=== PATIENT | male | born 1985 | race Caucasian/White ===

== ENCOUNTER 2019-05-02 08:02 | Inpatient (IN) | payer BC ==
[2019-05-02] MEDS ORDERED: Sodium Chloride 0.9% 1,000 ML IV ONE (08:13)
[2019-05-02] MEDS ORDERED: Ketorolac 30 MG/ML SDV IVPUSH ONE (08:13)
--- NOTE | 2019-05-02 08:15 | EDM.PDOC ---
ED HPI GENERAL MEDICAL PROBLEM - General Chief Complaint: General Stated Complaint: SHORTNESS OF BREATH, FEVER Time Seen by Provider: 05/02/19 08:13 - History of Present Illness INITIAL COMMENTS - FREE TEXT/NARRATIVE: HISTORY AND PHYSICAL: History of present illness: Patient 33-year-old white male presents with concern of body aches cough and fever or last 5 days patient is a smoker he denies nausea vomiting he states he' s had increasing weakness and body aches or last 24 hours. He's also complaining of shortness of breath. Review of systems: As per history of present illness and below otherwise all systems reviewed and negative. Past medical history: As per history of present illness and as reviewed below otherwise noncontributory. Surgical history: As per history of present illness and as reviewed below otherwise noncontributory. Social history: No reported history of drug or alcohol abuse. Family history: As per history of present illness and as reviewed below otherwise noncontributory. Physical exam: HEENT: Atraumatic, normocephalic, pupils reactive, negative for conjunctival pallor or scleral icterus, mucous membranes moist, throat clear, neck supple, nontender, trachea midline. Lungs: Coarse bilaterally, breath sounds equal bilaterally, chest nontender. Heart: S1S2, regular, negative for clicks, rubs, or JVD. Abdomen: Soft, nondistended, nontender. Negative for masses or hepatosplenomegaly. Negative for costovertebral tenderness. Pelvis: Stable nontender. Genitourinary: Deferred. Rectal: Deferred. Extremities: Atraumatic, negative for cords or calf pain. Neurovascular unremarkable. Neuro: Awake, alert, oriented. Cranial nerves II through XII unremarkable. Cerebellum unremarkable. Motor and sensory unremarkable throughout. Exam nonfocal. Diagnostics: CBC CMP chest x-ray blood cultures 2 lactic acid ABG Therapeutics: Saline 1 L bolus and Toradol 30 mg IV albuterol ipratropium nebulizer Impression: #1 dyspnea #2 history of fever #3 myalgia #4 rule out pneumonia Definitive disposition and diagnosis as appropriate pending reevaluation and review of above. - Related Data Allergies Allergy/AdvReac Type Severity Reaction Status Date / Time No Known Allergies Allergy Verified 05/02/19 08:18 Home Meds: Home Meds . [No Known Home Meds] 05/02/19 [History] ED ROS GENERAL - Review of Systems Review Of Systems: ROS reveals no pertinent complaints other than HPI. ED EXAM, GENERAL - Physical Exam Exam: See Below (The dictation) Course - Vital Signs Last Recorded V/S: Last Vital Signs Temp 37.2 C 05/02/19 08:15 Pulse 101 H 05/02/19 08:15 Resp 24 H 05/02/19 08:15 BP 118/80 05/02/19 08:15 Pulse Ox 97 05/02/19 08:15 - Orders/Labs/Meds Orders: Active Orders 24 hr Category Date Time Status RT Aerosol Therapy [RC] ASDIRECTED Care 05/02/19 08:16 Active Chest 1V Frontal [CR] Stat Exams 05/02/19 08:13 Taken CULTURE BLOOD [BC] Stat Lab 05/02/19 08:27 Received CULTURE BLOOD [BC] Stat Lab 05/02/19 08:57 Received Blood Culture x2 Reflex Set [OM.PC] Stat Oth 05/02/19 08:13 Ordered Labs: Laboratory Tests 05/02/19 05/02/19 05/02/19 Range/Units 08:27 08:27 08:27 WBC 6.84 (4.0-11.0) K/uL RBC 4.77 (4.50-5.90) M/uL Hgb 14.2 (13.0-17.0) g/dL Hct 40.8 (38.0-50.0) % MCV 85.5 (80.0-98.0) fL MCH 29.8 (27.0-32.0) pg MCHC 34.8 (31.0-37.0) g/dL RDW Std Deviation 41.3 (28.0-62.0) fl RDW Coeff of Supriya 13 (11.0-15.0) % Plt Count 221 (150-400) K/uL MPV 10.30 (7.40-12.00) fL Neut % (Auto) 79.8 (48.0-80.0) % Lymph % (Auto) 10.2 L (16.0-40.0) % [place] % (Auto) 9.6 (0.0-15.0) % Eos % (Auto) 0.3 (0.0-7.0) % Baso % (Auto) 0.1 (0.0-1.5) % Neut # (Auto) 5.5 (1.4-5.7) K/uL Lymph # (Auto) 0.7 (0.6-2.4) K/uL [place] # (Auto) 0.7 (0.0-0.8) K/uL Eos # (Auto) 0.0 (0.0-0.7) K/uL Baso # (Auto) 0.0 (0.0-0.1) K/uL Nucleated RBC % 0.0 /100WBC Nucleated RBCs # 0 K/uL ABG pH (7.35-7.45) ABG pCO2 (35-45) mmHG ABG pO2 (75-100) mmHG ABG HCO3 (22-26) mEq/L ABG Total CO2 ABG Base Excess (-2.0-2.0) Lactate 1.3 (0.20-2.00) mmol/L Sodium 135 L (136-148) mmol/L Potassium 3.8 (3.5-5.1) mmol/L Chloride 101 (98-107) mmol/L Carbon Dioxide 21.1 (21.0-32.0) mmol/L BUN 14 (7.0-18.0) mg/dL Creatinine 1.2 (0.8-1.3) mg/dL Est Cr Clr Drug Dosing 95.20 mL/min Estimated GFR (MDRD) > 60.0 ml/min Glucose 102 (74-106) mg/dL Calcium 9.1 (8.5-10.1) mg/dL Total Bilirubin 0.6 (0.2-1.0) mg/dL AST 22 (15-37) IU/L ALT 35 (14-63) IU/L Alkaline Phosphatase 68 (46-116) U/L Total Protein 7.2 (6.4-8.2) g/dL Albumin 3.0 L (3.4-5.0) g/dL Globulin 4.2 H (2.6-4.0) g/dL Albumin/Globulin Ratio 0.7 L (0.9-1.6) 05/02/19 Range/Units 08:43 WBC (4.0-11.0) K/uL RBC (4.50-5.90) M/uL Hgb (13.0-17.0) g/dL Hct (38.0-50.0) % MCV (80.0-98.0) fL MCH (27.0-32.0) pg MCHC (31.0-37.0) g/dL RDW Std Deviation (28.0-62.0) fl RDW Coeff of Supriya (11.0-15.0) % Plt Count (150-400) K/uL MPV (7.40-12.00) fL Neut % (Auto) (48.0-80.0) % Lymph % (Auto) (16.0-40.0) % [place] % (Auto) (0.0-15.0) % Eos % (Auto) (0.0-7.0) % Baso % (Auto) (0.0-1.5) % Neut # (Auto) (1.4-5.7) K/uL Lymph # (Auto) (0.6-2.4) K/uL [place] # (Auto) (0.0-0.8) K/uL Eos # (Auto) (0.0-0.7) K/uL Baso # (Auto) (0.0-0.1) K/uL Nucleated RBC % /100WBC Nucleated RBCs # K/uL ABG pH 7.647 H (7.35-7.45) ABG pCO2 16 L (35-45) mmHG ABG pO2 66 L (75-100) mmHG ABG HCO3 18 L (22-26) mEq/L ABG Total CO2 15.2 ABG Base Excess -0.4 (-2.0-2.0) Lactate (0.20-2.00) mmol/L Sodium (136-148) mmol/L Potassium (3.5-5.1) mmol/L Chloride (98-107) mmol/L Carbon Dioxide (21.0-32.0) mmol/L BUN (7.0-18.0) mg/dL Creatinine (0.8-1.3) mg/dL Est Cr Clr Drug Dosing mL/min Estimated GFR (MDRD) ml/min Glucose (74-106) mg/dL Calcium (8.5-10.1) mg/dL Total Bilirubin (0.2-1.0) mg/dL AST (15-37) IU/L ALT (14-63) IU/L Alkaline Phosphatase (46-116) U/L Total Protein (6.4-8.2) g/dL Albumin (3.4-5.0) g/dL Globulin (2.6-4.0) g/dL Albumin/Globulin Ratio (0.9-1.6) Meds: Medications Discontinued Medications Generic Name Dose Route Start Last Admin Trade Name Holly PRN Reason Stop Dose Admin Albuterol/Ipratropium 3 ml 05/02/19 08:16 05/02/19 09:00 Duoneb 3.0-0.5 Mg/3 Ml NEB 05/02/19 08:17 3 ml ONETIME ONE Administration Sodium Chloride 1,000 mls @ 999 mls/hr 05/02/19 08:13 05/02/19 08:30 Normal Saline IV 05/02/19 09:13 999 mls/hr STAT ONE Administration Ketorolac Tromethamine 30 mg 05/02/19 08:13 05/02/19 08:30 Toradol IVPUSH 05/02/19 08:14 30 mg ONETIME ONE Administration Departure - Departure Time of Disposition: 10:09 Disposition: Admitted As Inpatient 65 Condition: Good Clinical Impression: Pneumonia - Discharge Information Referrals: PCP,Unknown [Primary Care Provider] - Forms: ED Department Discharge - My Orders Last 24 Hours: My Active Orders 05/02/19 08:13 Chest 1V Frontal [CR] Stat Blood Culture x2 Reflex Set [OM.PC] Stat 05/02/19 08:16 RT Aerosol Therapy [RC] ASDIRECTED 05/02/19 08:27 CULTURE BLOOD [BC] Stat 05/02/19 08:57 CULTURE BLOOD [BC] Stat - Assessment/Plan Last 24 Hours: My Active Orders 05/02/19 08:13 Chest 1V Frontal [CR] Stat Blood Culture x2 Reflex Set [OM.PC] Stat 05/02/19 08:16 RT Aerosol Therapy [RC] ASDIRECTED 05/02/19 08:27 CULTURE BLOOD [BC] Stat 05/02/19 08:57 CULTURE BLOOD [BC] Stat
[2019-05-02] MEDS ORDERED: Albuterol/Ipratropium 3.0-0.5 MG/3 ML Neb Soln NEB ONE (08:16)
[2019-05-02 09:14] LABS: BLOOD UREA NITROGEN,BUN 14 mg/dL (7.0-18.0); CARBON DIOXIDE,CO2 21.1 mmol/L (21.0-32.0); CHLORIDE,CL 101 mmol/L (98-107); GLUCOSE RANDOM 102 mg/dL (74-106); POTASSIUM,K 3.8 mmol/L (3.5-5.1); SODIUM,NA 135 mmol/L (136-148)
[2019-05-02] MEDS ORDERED: cefTRIAXone 1 GM in Premix Bag 1 BAG IV ONE (10:10)
[2019-05-02] MEDS ORDERED: Azithromycin 500 MG Vial IV ONE (10:10)
--- NOTE | 2019-05-02 10:10 | CR ---
INDICATION : SOB and congestion. TECHNIQUE: Upright portable AP image of the chest. COMPARISON: None. FINDINGS: Right middle lobe pneumonia with some consolidation along the lateral minor fissure. Patchy/nodular opacity in the lower left lung suggesting pneumonia as well. No pleural effusion. Heart size and pulmonary vasculature within normal limits. No significant bony abnormality. IMPRESSION: Right middle lobe pneumonia suspected lower left lung pneumonia. Dictated by Merritt Underwood MD @ May 02 2019 10:06AM Signed by Dr. Merritt Underwood @ May 02 2019 10:08AM
[2019-05-02] MEDS ORDERED: Azithromycin 500 MG in Sodium Chloride 0.9% 250 ML IV ONE (10:15)
--- NOTE | 2019-05-02 10:55 | PCM.HP.2 ---
<Imelda Lr - Last Filed: 05/02/19 10:50> H&P History of Present Illness - General Date of Service: 05/02/19 Admit Problem/Dx: Admission Diagnosis/Problem Admission Diagnosis/Problem Pneumonia - History of Present Illness Initial Comments - Free Text/Narative: The patient is a 33 year old male who presented to the ER for productive cough, shortness of breath, body aches, fever/chills for the past 5-6 days. reports the shortness of breath got significantly worse which is what brought him to the ER todya. He has been using Tylenol and NyQuil at home without relief. denies history of lung disease or pneumonia. reports he smokes cigarettes 1pk/ day and vapes. Hasn't smoked in the last week due to illness. Reports otherwise healthy, no chronic conditions, no medications. In the ER, ABG showed respiratory alkalosis, no white count, no elevated lactate , CMP had no significant findings. He was requiring oxygen in the ER. CXR showed right middle lobe pneumonia nd possible left lower lobe pneumonia. In the ER he received a DuoNeb treatment that improved his SOB. He received a dose of Azithromycin and Rocephin. PCP- none headache, generalized Pain Score (Numeric/FACES): 8 - Related Data Allergies/Adverse Reactions: Allergies Allergy/AdvReac Type Severity Reaction Status Date / Time No Known Allergies Allergy Verified 05/02/19 08:18 Home Medications: Home Meds . [No Known Home Meds] 05/02/19 [History] Past Medical History - Past Health History Medical/Surgical History: Denies Medical/Surgical History - Infectious Disease History Infectious Disease History: Reports: MRSA - Past Surgical History GI Surgical History: Reports: Hernia, Inguinal Social & Family History - Family History Family Medical History: Noncontributory - Tobacco Use Smoking Status *Q: Current Every Day Smoker Tobacco Use Within Last Twelve Months: Cigarettes, Other (See Below) (vapes) Years of Tobacco use: 15 Packs/Tins Daily: 0.1 - Alcohol Use Alcohol Use History: No - Recreational Drug Use Recreational Drug Use: No H&P Review of Systems - Review of Systems: Review Of Systems: See Below General: Reports: Fever, Chills HEENT: Reports: No Symptoms Pulmonary: Reports: Shortness of Breath, Wheezing, Cough Cardiovascular: Reports: No Symptoms Gastrointestinal: Reports: No Symptoms Genitourinary: Reports: No Symptoms Musculoskeletal: Reports: No Symptoms Skin: Reports: No Symptoms Psychiatric: Reports: No Symptoms Neurological: Reports: No Symptoms Hematologic/Lymphatic: Reports: No Symptoms Immunologic: Reports: No Symptoms Exam - Exam Exam: See Below - Vital Signs Vital Signs: Last Vital Signs Temp 99 F 05/02/19 08:15 Pulse 101 H 05/02/19 08:15 Resp 24 H 05/02/19 08:15 BP 118/80 05/02/19 08:15 Pulse Ox 97 05/02/19 08:15 Weight: 106.594 kg - Exam Quality Assessment: Supplemental Oxygen General: Alert, Oriented, Cooperative HEENT: Conjunctiva Clear, EOMI, Mucosa Moist & [place], Posterior Pharynx Clear, Pupils Equal, Pupils Reactive Neck: Supple, Trachea Midline Lungs: Normal Respiratory Effort, Crackles (right) Cardiovascular: Regular Rate, Regular Rhythm GI/Abdominal Exam: Normal Bowel Sounds, Soft, Non-Tender, No Distention Extremities: No Pedal Edema Skin: Warm, Dry, Intact Neuro Extensive - Mental Status: Alert, Oriented x3 Psychiatric: Alert, Normal Affect, Normal Mood - Patient Data Lab Results Last 24 hrs: Laboratory Results - last 24 hr 05/02/19 05/02/19 05/02/19 Range/Units 08:27 08:27 08:27 WBC 6.84 (4.0-11.0) K/uL RBC 4.77 (4.50-5.90) M/uL Hgb 14.2 (13.0-17.0) g/dL Hct 40.8 (38.0-50.0) % MCV 85.5 (80.0-98.0) fL MCH 29.8 (27.0-32.0) pg MCHC 34.8 (31.0-37.0) g/dL RDW Std Deviation 41.3 (28.0-62.0) fl RDW Coeff of Supriya 13 (11.0-15.0) % Plt Count 221 (150-400) K/uL MPV 10.30 (7.40-12.00) fL Neut % (Auto) 79.8 (48.0-80.0) % Lymph % (Auto) 10.2 L (16.0-40.0) % [place] % (Auto) 9.6 (0.0-15.0) % Eos % (Auto) 0.3 (0.0-7.0) % Baso % (Auto) 0.1 (0.0-1.5) % Neut # (Auto) 5.5 (1.4-5.7) K/uL Lymph # (Auto) 0.7 (0.6-2.4) K/uL [place] # (Auto) 0.7 (0.0-0.8) K/uL Eos # (Auto) 0.0 (0.0-0.7) K/uL Baso # (Auto) 0.0 (0.0-0.1) K/uL Nucleated RBC % 0.0 /100WBC Nucleated RBCs # 0 K/uL ABG pH (7.35-7.45) ABG pCO2 (35-45) mmHG ABG pO2 (75-100) mmHG ABG HCO3 (22-26) mEq/L ABG Total CO2 ABG Base Excess (-2.0-2.0) Lactate 1.3 (0.20-2.00) mmol/L Sodium 135 L (136-148) mmol/L Potassium 3.8 (3.5-5.1) mmol/L Chloride 101 (98-107) mmol/L Carbon Dioxide 21.1 (21.0-32.0) mmol/L BUN 14 (7.0-18.0) mg/dL Creatinine 1.2 (0.8-1.3) mg/dL Est Cr Clr Drug Dosing 95.20 mL/min Estimated GFR (MDRD) > 60.0 ml/min Glucose 102 (74-106) mg/dL Calcium 9.1 (8.5-10.1) mg/dL Total Bilirubin 0.6 (0.2-1.0) mg/dL AST 22 (15-37) IU/L ALT 35 (14-63) IU/L Alkaline Phosphatase 68 (46-116) U/L Total Protein 7.2 (6.4-8.2) g/dL Albumin 3.0 L (3.4-5.0) g/dL Globulin 4.2 H (2.6-4.0) g/dL Albumin/Globulin Ratio 0.7 L (0.9-1.6) 05/02/19 Range/Units 08:43 WBC (4.0-11.0) K/uL RBC (4.50-5.90) M/uL Hgb (13.0-17.0) g/dL Hct (38.0-50.0) % MCV (80.0-98.0) fL MCH (27.0-32.0) pg MCHC (31.0-37.0) g/dL RDW Std Deviation (28.0-62.0) fl RDW Coeff of Supriya (11.0-15.0) % Plt Count (150-400) K/uL MPV (7.40-12.00) fL Neut % (Auto) (48.0-80.0) % Lymph % (Auto) (16.0-40.0) % [place] % (Auto) (0.0-15.0) % Eos % (Auto) (0.0-7.0) % Baso % (Auto) (0.0-1.5) % Neut # (Auto) (1.4-5.7) K/uL Lymph # (Auto) (0.6-2.4) K/uL [place] # (Auto) (0.0-0.8) K/uL Eos # (Auto) (0.0-0.7) K/uL Baso # (Auto) (0.0-0.1) K/uL Nucleated RBC % /100WBC Nucleated RBCs # K/uL ABG pH 7.647 H (7.35-7.45) ABG pCO2 16 L (35-45) mmHG ABG pO2 66 L (75-100) mmHG ABG HCO3 18 L (22-26) mEq/L ABG Total CO2 15.2 ABG Base Excess -0.4 (-2.0-2.0) Lactate (0.20-2.00) mmol/L Sodium (136-148) mmol/L Potassium (3.5-5.1) mmol/L Chloride (98-107) mmol/L Carbon Dioxide (21.0-32.0) mmol/L BUN (7.0-18.0) mg/dL Creatinine (0.8-1.3) mg/dL Est Cr Clr Drug Dosing mL/min Estimated GFR (MDRD) ml/min Glucose (74-106) mg/dL Calcium (8.5-10.1) mg/dL Total Bilirubin (0.2-1.0) mg/dL AST (15-37) IU/L ALT (14-63) IU/L Alkaline Phosphatase (46-116) U/L Total Protein (6.4-8.2) g/dL Albumin (3.4-5.0) g/dL Globulin (2.6-4.0) g/dL Albumin/Globulin Ratio (0.9-1.6) Result Diagrams: 05/02/19 08:27 05/02/19 08:27 - Problem List (1) Smoker SNOMED Code(s): 10657981 ICD Code: F17.200 - NICOTINE DEPENDENCE, UNSPECIFIED, UNCOMPLICATED Status : Acute Current Visit: Yes (2) Nicotine vapor product user SNOMED Code(s): 424484699 ICD Code: Z78.9 - OTHER SPECIFIED HEALTH STATUS Status: Acute Current Visit: Yes (3) Community acquired pneumonia SNOMED Code(s): 874285652 ICD Code: J18.9 - PNEUMONIA, UNSPECIFIED ORGANISM Status: Acute Current Visit: Yes Problem List Initiated/Reviewed/Updated: Yes Orders Last 24hrs: Active Orders 24 hr Category Date Time Status Patient Status [ADT] Stat ADT 05/02/19 10:26 Active RT Aerosol Therapy [RC] ASDIRECTED Care 05/02/19 08:16 Active CULTURE BLOOD [BC] Stat Lab 05/02/19 08:27 Received CULTURE BLOOD [BC] Stat Lab 05/02/19 08:57 Received Azithromycin [Zithromax] 500 mg Med 05/02/19 10:15 Active Sodium Chloride 0.9% [Normal Saline] 250 ml IV ONETIME Blood Culture x2 Reflex Set [OM.PC] Stat Oth 05/02/19 08:13 Ordered Medication Orders Azithromycin 500 mg/ Sodium (Chloride) 250 mls @ 250 mls/hr IV ONETIME ONE Stop: 05/02/19 11:14 Last Admin: 05/02/19 10:33 Dose: 250 mls/hr Assessment/Plan Comment:: 1. Admit for inpatient 2. Code status-full 3. vitals per routine 4. I/Os per routine 5. Diet- regualr 6. DVT prophylaxis with SCDs 7. CAP-Continue Azithromycin and Rocephin. DuoNeb prn. Will obtain sputum culture. Encourage Incentive spirometer. Continue IVF 8. Vape/cigarette smoker- nicotine patch <Danyel Schroeder - Last Filed: 05/02/19 13:09> H&P History of Present Illness - General Admit Problem/Dx: Admission Diagnosis/Problem Admission Diagnosis/Problem Pneumonia I have examined the patient independently of medical billing service, Dr. Lr. I have discussed the case with her. I have reviewed and agree with the plan of care as outlined for the patient by her. Please see orders. The concern is for vaping related lung injury as well. Exam - Vital Signs Vital Signs: Last Vital Signs Temp 37.3 C 05/02/19 11:21 Pulse 78 05/02/19 11:21 Resp 18 05/02/19 11:21 BP 132/73 05/02/19 11:21 Pulse Ox 95 05/02/19 11:21 - Patient Data Lab Results Last 24 hrs: Laboratory Results - last 24 hr 05/02/19 05/02/19 05/02/19 Range/Units 08:27 08:27 08:27 WBC 6.84 (4.0-11.0) K/uL RBC 4.77 (4.50-5.90) M/uL Hgb 14.2 (13.0-17.0) g/dL Hct 40.8 (38.0-50.0) % MCV 85.5 (80.0-98.0) fL MCH 29.8 (27.0-32.0) pg MCHC 34.8 (31.0-37.0) g/dL RDW Std Deviation 41.3 (28.0-62.0) fl RDW Coeff of Supriya 13 (11.0-15.0) % Plt Count 221 (150-400) K/uL MPV 10.30 (7.40-12.00) fL Neut % (Auto) 79.8 (48.0-80.0) % Lymph % (Auto) 10.2 L (16.0-40.0) % [place] % (Auto) 9.6 (0.0-15.0) % Eos % (Auto) 0.3 (0.0-7.0) % Baso % (Auto) 0.1 (0.0-1.5) % Neut # (Auto) 5.5 (1.4-5.7) K/uL Lymph # (Auto) 0.7 (0.6-2.4) K/uL [place] # (Auto) 0.7 (0.0-0.8) K/uL Eos # (Auto) 0.0 (0.0-0.7) K/uL Baso # (Auto) 0.0 (0.0-0.1) K/uL Nucleated RBC % 0.0 /100WBC Nucleated RBCs # 0 K/uL ABG pH (7.35-7.45) ABG pCO2 (35-45) mmHG ABG pO2 (75-100) mmHG ABG HCO3 (22-26) mEq/L ABG Total CO2 ABG Base Excess (-2.0-2.0) Lactate 1.3 (0.20-2.00) mmol/L Sodium 135 L (136-148) mmol/L Potassium 3.8 (3.5-5.1) mmol/L Chloride 101 (98-107) mmol/L Carbon Dioxide 21.1 (21.0-32.0) mmol/L BUN 14 (7.0-18.0) mg/dL Creatinine 1.2 (0.8-1.3) mg/dL Est Cr Clr Drug Dosing 95.20 mL/min Estimated GFR (MDRD) > 60.0 ml/min Glucose 102 (74-106) mg/dL Calcium 9.1 (8.5-10.1) mg/dL Total Bilirubin 0.6 (0.2-1.0) mg/dL AST 22 (15-37) IU/L ALT 35 (14-63) IU/L Alkaline Phosphatase 68 (46-116) U/L Total Protein 7.2 (6.4-8.2) g/dL Albumin 3.0 L (3.4-5.0) g/dL Globulin 4.2 H (2.6-4.0) g/dL Albumin/Globulin Ratio 0.7 L (0.9-1.6) 05/02/19 Range/Units 08:43 WBC (4.0-11.0) K/uL RBC (4.50-5.90) M/uL Hgb (13.0-17.0) g/dL Hct (38.0-50.0) % MCV (80.0-98.0) fL MCH (27.0-32.0) pg MCHC (31.0-37.0) g/dL RDW Std Deviation (28.0-62.0) fl RDW Coeff of Supriya (11.0-15.0) % Plt Count (150-400) K/uL MPV (7.40-12.00) fL Neut % (Auto) (48.0-80.0) % Lymph % (Auto) (16.0-40.0) % [place] % (Auto) (0.0-15.0) % Eos % (Auto) (0.0-7.0) % Baso % (Auto) (0.0-1.5) % Neut # (Auto) (1.4-5.7) K/uL Lymph # (Auto) (0.6-2.4) K/uL [place] # (Auto) (0.0-0.8) K/uL Eos # (Auto) (0.0-0.7) K/uL Baso # (Auto) (0.0-0.1) K/uL Nucleated RBC % /100WBC Nucleated RBCs # K/uL ABG pH 7.647 H (7.35-7.45) ABG pCO2 16 L (35-45) mmHG ABG pO2 66 L (75-100) mmHG ABG HCO3 18 L (22-26) mEq/L ABG Total CO2 15.2 ABG Base Excess -0.4 (-2.0-2.0) Lactate (0.20-2.00) mmol/L Sodium (136-148) mmol/L Potassium (3.5-5.1) mmol/L Chloride (98-107) mmol/L Carbon Dioxide (21.0-32.0) mmol/L BUN (7.0-18.0) mg/dL Creatinine (0.8-1.3) mg/dL Est Cr Clr Drug Dosing mL/min Estimated GFR (MDRD) ml/min Glucose (74-106) mg/dL Calcium (8.5-10.1) mg/dL Total Bilirubin (0.2-1.0) mg/dL AST (15-37) IU/L ALT (14-63) IU/L Alkaline Phosphatase (46-116) U/L Total Protein (6.4-8.2) g/dL Albumin (3.4-5.0) g/dL Globulin (2.6-4.0) g/dL Albumin/Globulin Ratio (0.9-1.6) Result Diagrams: 05/02/19 08:27 05/02/19 08:27 Orders Last 24hrs: Active Orders 24 hr Category Date Time Status Patient Status [ADT] Stat ADT 05/02/19 10:26 Active Antiembolic Devices [RC] PER UNIT ROUTINE Care 05/02/19 11:00 Active Intake and Output [RC] ASDIRECTED Care 05/02/19 10:59 Active RT Aerosol Therapy [RC] ASDIRECTED Care 05/02/19 08:16 Active RT Aerosol Therapy [RC] ASDIRECTED Care 05/02/19 11:00 Active RT Incentive Spirometry [RC] Q2HWA Care 05/02/19 10:59 Active Vital Signs [RC] PER UNIT ROUTINE Care 05/02/19 10:59 Active Regular Diet [DIET] Diet 05/02/19 Lunch Active BASIC METABOLIC PANEL,BMP [CHEM] AM Lab 05/03/19 05:11 Ordered CBC WITH AUTO DIFF [HEME] AM Lab 05/03/19 05:11 Ordered CULTURE BLOOD [BC] Stat Lab 05/02/19 08:27 Received CULTURE BLOOD [BC] Stat Lab 05/02/19 08:57 Received CULTURE SPUTUM + SMEAR [RM] Stat Lab 05/02/19 10:59 Ordered Acetaminophen [Tylenol] Med 05/02/19 11:07 Active 650 mg PO Q4H PRN Albuterol/Ipratropium [DuoNeb 3.0-0.5 MG/3 ML] Med 05/02/19 10:59 Active 3 ml NEB Q4HRRT PRN Azithromycin [Zithromax] 500 mg Med 05/03/19 09:00 Active Sodium Chloride 0.9% [Normal Saline (AdvBag)] 250 ml IV DAILY Nicotine [Habitrol] Med 05/02/19 11:15 Active 21 mg TRDERM DAILY Ondansetron [Zofran] Med 05/02/19 11:07 Active 4 mg IVPUSH Q4H PRN Sodium Chloride 0.9% [Normal Saline] 1,000 ml Med 05/02/19 11:15 Active IV ASDIRECTED cefTRIAXone [Rocephin in Dextrose,Iso-Osm 1 GM/50 ML] 1 Med 05/03/19 09:00 Active gm Premix Bag 1 bag IV Q24H Blood Culture x2 Reflex Set [OM.PC] Stat Oth 05/02/19 08:13 Ordered Sequential Compression Device [OM.PC] Stat Oth 05/02/19 10:59 Ordered Resuscitation Status Stat Resus Stat 05/02/19 10:59 Ordered Medication Orders Acetaminophen (Tylenol) 650 mg PO Q4H PRN PRN Reason: Pain/Fever Last Admin: 05/02/19 12:36 Dose: 650 mg Albuterol/Ipratropium (Duoneb 3.0-0.5 Mg/3 Ml) 3 ml NEB Q4HRRT PRN PRN Reason: Shortness of Breath Azithromycin 500 mg/ Sodium (Chloride) 250 mls @ 250 mls/hr IV DAILY VINICIO Ceftriaxone Sodium/Dextrose 1 (gm/ Premix) 50 mls @ 100 mls/hr IV Q24H VINICIO Sodium Chloride (Normal Saline) 1,000 mls @ 125 mls/hr IV ASDIRECTED VINICIO Nicotine (Habitrol) 21 mg TRDERM DAILY VINICIO Ondansetron HCl (Zofran) 4 mg IVPUSH Q4H PRN PRN Reason: Nausea/Vomiting
[2019-05-02] MEDS ORDERED: Albuterol/Ipratropium 3.0-0.5 MG/3 ML Neb Soln NEB PRN (10:59)
[2019-05-02] MEDS ORDERED: Ondansetron 4 MG/2 ML SDV IVPUSH PRN (11:07)
[2019-05-02] MEDS: Acetaminophen 325 MG Tab PO PRN ×2 (12:36→17:42)
[2019-05-02] MEDS: Nicotine 21 MG/24 Hr Patch TRDERM SCH (13:48)
[2019-05-02] MEDS: predniSONE 20 MG Tab PO SCH (18:32)
[2019-05-02] MEDS: Sodium Chloride 0.9% 1,000 ML IV SCH (19:45)
[2019-05-02] MEDS ORDERED: Benzonatate 100 MG Cap PO PRN (20:17)
[2019-05-03] MEDS: Sodium Chloride 0.9% 1,000 ML IV SCH (03:05)
[2019-05-03 07:46] LABS: BLOOD UREA NITROGEN,BUN 10 mg/dL (7.0-18.0); CARBON DIOXIDE,CO2 24.7 mmol/L (21.0-32.0); CHLORIDE,CL 108 mmol/L (98-107); GLUCOSE RANDOM 117 mg/dL (74-106); POTASSIUM,K 4.7 mmol/L (3.5-5.1); SODIUM,NA 140 mmol/L (136-148)
--- NOTE | 2019-05-03 08:39 | PCM.DCSUM1 ---
<Imelda Lr - Last Filed: 05/03/19 09:07> Discharge Summary - Hospital Course HPI Initial Comments: Admission Date: 05/02/19 Discharge Date: 05/03/19 Admission Diagnosis: 1. CAP 2. Nicotine user- cigarettes and vape Discharge Diagnosis: 1. CAP 2. Nicotine user- cigarettes and vape Procedures: None Consults: None Hospital Course: The patient is a 33-year-old male who presented to the ER with increased shortness of breath, productive cough and body aches. In the ER he was found to have a right middle lobe pneumonia and possible left lower lobe pneumonia on CXR. He had no white count and no elevated lactate. CMP had no significant findings. In the ER, he had a DuoNeb treatment that improved his shortness of breath. He also received a dose of azithromycin and Rocephin. He was admitted to the medical surgical floor where we continued azithromycin, Rocephin and IVF. We did start him on prednisone for possible vaping related pneumonitis. We continued DuoNebs and encourage incentive spirometry. He did not require any oxygen while admitted. For his nicotine use, he was offered a nicotine patch but he declined. We recommended smoking cessation. By day of discharge, the patient felt much better and stated he wanted to go home. Disposition: Home Discharge Condition: vitals stable, tolerating oral diet, ambulating without difficulty, symptom improvement Discharge Instructions: regular diet as tolerated, activity as tolerated, take medications as prescribed. Stop smoking/vaping. Symptoms to report to physician include fever/chills, chest pain, shortness of breath, abdominal pain , erythema, drainage/discharge, or not improving as expected. Discharge Medications: Albuterol [Ventolin HFA] 2 puff .XX Q6HR PRN Amoxicillin/Potassium Clav [Augmentin 875-125 Tablet] 1 each PO BID 5 Days Azithromycin 500 mg PO DAILY 5 Days methylPREDNISolone [Medrol] 4 mg PO DAILY 6 Days #1 dospk Follow-up: 1. Primary care provider- Sheri Ashraf on 05/15/19 - Discharge Data Discharge Date: 05/03/19 Discharge Disposition: Home, Self-Care 01 Condition: Stable - Discharge Diagnosis/Problem(s) (1) Smoker SNOMED Code(s): 26520492 ICD Code: F17.200 - NICOTINE DEPENDENCE, UNSPECIFIED, UNCOMPLICATED Status : Acute (2) Nicotine vapor product user SNOMED Code(s): 240805848 ICD Code: Z78.9 - OTHER SPECIFIED HEALTH STATUS Status: Acute (3) Community acquired pneumonia SNOMED Code(s): 740110548 ICD Code: J18.9 - PNEUMONIA, UNSPECIFIED ORGANISM Status: Acute - Discharge Plan Prescriptions/Med Rec: Albuterol [Ventolin HFA] 2 puff .XX Q6HR PRN 5 Days #1 inhaler PRN Reason: Shortness Of Breath Amoxicillin/Potassium Clav [Augmentin 875-125 Tablet] 1 each PO BID 5 Days #10 tablet Azithromycin 500 mg PO DAILY 5 Days #5 tablet methylPREDNISolone [Medrol] 4 mg PO DAILY 6 Days #1 dospk Home Medications: Home Meds Albuterol [Ventolin HFA] 2 puff .XX Q6HR PRN 5 Days #1 inhaler 05/03/19 [Rx] Amoxicillin/Potassium Clav [Augmentin 875-125 Tablet] 1 each PO BID 5 Days #10 tablet 05/03/19 [Rx] Azithromycin 500 mg PO DAILY 5 Days #5 tablet 05/03/19 [Rx] methylPREDNISolone [Medrol] 4 mg PO DAILY 6 Days #1 dospk 05/03/19 [Rx] Patient Handouts: Amoxicillin; Clavulanic Acid tablets, Albuterol inhalation aerosol, Azithromycin tablets, Methylprednisolone tablets, Community-Acquired Pneumonia, Adult, Hocm-pi-Nroe Referrals: Sheri Ashraf PA [Physician Cloth Sander] - 05/15/19 8:00 am - Discharge Summary/Plan Comment DC Time >30 min.: No - Patient Data Vitals - Most Recent: Last Vital Signs Temp 97.6 F 05/03/19 08:00 Pulse 68 05/03/19 08:00 Resp 20 05/03/19 08:00 BP 130/82 05/03/19 08:00 Pulse Ox 95 05/03/19 08:00 Weight - Most Recent: 111.13 kg I&O - Last 24 hours: Intake & Output 05/02/19 05/03/19 05/03/19 22:59 06:59 14:59 Intake Total 1317 1970 Output Total 850 1400 Balance 467 570 Lab Results - Last 24 hrs: Laboratory Results - last 24 hr 09/05/19 09/05/19 09/05/19 Range/Units 08:27 08:27 08:27 WBC 6.84 (4.0-11.0) K/uL RBC 4.77 (4.50-5.90) M/uL Hgb 14.2 (13.0-17.0) g/dL Hct 40.8 (38.0-50.0) % MCV 85.5 (80.0-98.0) fL MCH 29.8 (27.0-32.0) pg MCHC 34.8 (31.0-37.0) g/dL RDW Std Deviation 41.3 (28.0-62.0) fl RDW Coeff of Supriya 13 (11.0-15.0) % Plt Count 221 (150-400) K/uL MPV 10.30 (7.40-12.00) fL Neut % (Auto) 79.8 (48.0-80.0) % Lymph % (Auto) 10.2 L (16.0-40.0) % Calvert % (Auto) 9.6 (0.0-15.0) % Eos % (Auto) 0.3 (0.0-7.0) % Baso % (Auto) 0.1 (0.0-1.5) % Neut # (Auto) 5.5 (1.4-5.7) K/uL Lymph # (Auto) 0.7 (0.6-2.4) K/uL Calvert # (Auto) 0.7 (0.0-0.8) K/uL Eos # (Auto) 0.0 (0.0-0.7) K/uL Baso # (Auto) 0.0 (0.0-0.1) K/uL Nucleated RBC % 0.0 /100WBC Nucleated RBCs # 0 K/uL ABG pH (7.35-7.45) ABG pCO2 (35-45) mmHG ABG pO2 (75-100) mmHG ABG HCO3 (22-26) mEq/L ABG Total CO2 ABG Base Excess (-2.0-2.0) Lactate 1.3 (0.20-2.00) mmol/L Sodium 135 L (136-148) mmol/L Potassium 3.8 (3.5-5.1) mmol/L Chloride 101 (98-107) mmol/L Carbon Dioxide 21.1 (21.0-32.0) mmol/L BUN 14 (7.0-18.0) mg/dL Creatinine 1.2 (0.8-1.3) mg/dL Est Cr Clr Drug Dosing 95.20 mL/min Estimated GFR (MDRD) > 60.0 ml/min Glucose 102 (74-106) mg/dL Calcium 9.1 (8.5-10.1) mg/dL Total Bilirubin 0.6 (0.2-1.0) mg/dL AST 22 (15-37) IU/L ALT 35 (14-63) IU/L Alkaline Phosphatase 68 (46-116) U/L Total Protein 7.2 (6.4-8.2) g/dL Albumin 3.0 L (3.4-5.0) g/dL Globulin 4.2 H (2.6-4.0) g/dL Albumin/Globulin Ratio 0.7 L (0.9-1.6) 05/02/19 05/03/19 05/03/19 Range/Units 08:43 06:26 06:26 WBC 5.10 (4.0-11.0) K/uL RBC 4.19 L (4.50-5.90) M/uL Hgb 12.0 L (13.0-17.0) g/dL Hct 36.0 L (38.0-50.0) % MCV 85.9 (80.0-98.0) fL MCH 28.6 (27.0-32.0) pg MCHC 33.3 (31.0-37.0) g/dL RDW Std Deviation 42.7 (28.0-62.0) fl RDW Coeff of Supriya 14 (11.0-15.0) % Plt Count 220 (150-400) K/uL MPV 10.00 (7.40-12.00) fL Neut % (Auto) 72.0 (48.0-80.0) % Lymph % (Auto) 13.1 L (16.0-40.0) % Calvert % (Auto) 14.7 (0.0-15.0) % Eos % (Auto) 0.0 (0.0-7.0) % Baso % (Auto) 0.2 (0.0-1.5) % Neut # (Auto) 3.7 (1.4-5.7) K/uL Lymph # (Auto) 0.7 (0.6-2.4) K/uL Calvert # (Auto) 0.8 (0.0-0.8) K/uL Eos # (Auto) 0.0 (0.0-0.7) K/uL Baso # (Auto) 0.0 (0.0-0.1) K/uL Nucleated RBC % 0.0 /100WBC Nucleated RBCs # 0 K/uL ABG pH 7.647 H (7.35-7.45) ABG pCO2 16 L (35-45) mmHG ABG pO2 66 L (75-100) mmHG ABG HCO3 18 L (22-26) mEq/L ABG Total CO2 15.2 ABG Base Excess -0.4 (-2.0-2.0) Lactate (0.20-2.00) mmol/L Sodium 140 (136-148) mmol/L Potassium 4.7 (3.5-5.1) mmol/L Chloride 108 H (98-107) mmol/L Carbon Dioxide 24.7 (21.0-32.0) mmol/L BUN 10 (7.0-18.0) mg/dL Creatinine 0.9 (0.8-1.3) mg/dL Est Cr Clr Drug Dosing 126.94 mL/min Estimated GFR (MDRD) > 60.0 ml/min Glucose 117 H (74-106) mg/dL Calcium 8.7 (8.5-10.1) mg/dL Total Bilirubin (0.2-1.0) mg/dL AST (15-37) IU/L ALT (14-63) IU/L Alkaline Phosphatase (46-116) U/L Total Protein (6.4-8.2) g/dL Albumin (3.4-5.0) g/dL Globulin (2.6-4.0) g/dL Albumin/Globulin Ratio (0.9-1.6) Med Orders - Current: Current Medications Acetaminophen (Tylenol) 650 mg PO Q4H PRN PRN Reason: Pain/Fever Last Admin: 05/02/19 17:42 Dose: 650 mg Albuterol/Ipratropium (Duoneb 3.0-0.5 Mg/3 Ml) 3 ml NEB Q4HRRT PRN PRN Reason: Shortness of Breath Benzonatate (Tessalon Perles) 100 mg PO TID PRN PRN Reason: Cough Last Admin: 05/02/19 20:45 Dose: 100 mg Azithromycin 500 mg/ Sodium (Chloride) 250 mls @ 250 mls/hr IV DAILY [facility] Ceftriaxone Sodium/Dextrose 1 (gm/ Premix) 50 mls @ 100 mls/hr IV Q24H [facility] Sodium Chloride (Normal Saline) 1,000 mls @ 125 mls/hr IV ASDIRECTED [facility] Last Admin: 05/03/19 03:05 Dose: 125 mls/hr Nicotine (Habitrol) 21 mg TRDERM DAILY [facility] Last Admin: 05/02/19 13:48 Dose: Not Given Ondansetron HCl (Zofran) 4 mg IVPUSH Q4H PRN PRN Reason: Nausea/Vomiting Prednisone (Prednisone) 40 mg PO DAILY [facility] Last Admin: 05/02/19 18:32 Dose: 40 mg Discontinued Medications Albuterol/Ipratropium (Duoneb 3.0-0.5 Mg/3 Ml) 3 ml NEB ONETIME ONE Stop: 05/02/19 08:17 Last Admin: 05/02/19 09:00 Dose: 3 ml Azithromycin (Zithromax) 500 mg IV ONETIME ONE Stop: 05/02/19 10:11 Last Admin: 05/02/19 10:17 Dose: Not Given Sodium Chloride (Normal Saline) 1,000 mls @ 999 mls/hr IV STAT ONE Stop: 05/02/19 09:13 Last Admin: 05/02/19 08:30 Dose: 999 mls/hr Ceftriaxone Sodium/Dextrose 1 (gm/ Premix) 50 mls @ 100 mls/hr IV ONETIME ONE Stop: 05/02/19 10:39 Last Admin: 05/02/19 12:35 Dose: 100 mls/hr Azithromycin 500 mg/ Sodium (Chloride) 250 mls @ 250 mls/hr IV ONETIME ONE Stop: 05/02/19 11:14 Last Admin: 05/02/19 10:33 Dose: 250 mls/hr Ketorolac Tromethamine (Toradol) 30 mg IVPUSH ONETIME ONE Stop: 05/02/19 08:14 Last Admin: 05/02/19 08:30 Dose: 30 mg <Danyel Schroeder - Last Filed: 05/03/19 16:42> Discharge Summary - Hospital Course HPI Initial Comments: I have seen and examined the patient independently of emergency medical dispatcher, Dr. Adeline DO. I have reviewed and agree with the plan of care as outlined for this patient by her. I have discussed the case with her. Please see orders. - Patient Data Vitals - Most Recent: Last Vital Signs Temp 36.4 C 05/03/19 08:00 Pulse 68 05/03/19 08:00 Resp 20 05/03/19 08:00 BP 130/82 05/03/19 08:00 Pulse Ox 95 05/03/19 08:00 I&O - Last 24 hours: Intake & Output 05/03/19 05/03/19 05/03/19 06:59 14:59 22:59 Intake Total 1970 1507 Output Total 1400 500 Balance 570 1007 Lab Results - Last 24 hrs: Laboratory Results - last 24 hr 05/03/19 05/03/19 Range/Units 06:26 06:26 WBC 5.10 (4.0-11.0) K/uL RBC 4.19 L (4.50-5.90) M/uL Hgb 12.0 L (13.0-17.0) g/dL Hct 36.0 L (38.0-50.0) % MCV 85.9 (80.0-98.0) fL MCH 28.6 (27.0-32.0) pg MCHC 33.3 (31.0-37.0) g/dL RDW Std Deviation 42.7 (28.0-62.0) fl RDW Coeff of Supriya 14 (11.0-15.0) % Plt Count 220 (150-400) K/uL MPV 10.00 (7.40-12.00) fL Neut % (Auto) 72.0 (48.0-80.0) % Lymph % (Auto) 13.1 L (16.0-40.0) % Calvert % (Auto) 14.7 (0.0-15.0) % Eos % (Auto) 0.0 (0.0-7.0) % Baso % (Auto) 0.2 (0.0-1.5) % Neut # (Auto) 3.7 (1.4-5.7) K/uL Lymph # (Auto) 0.7 (0.6-2.4) K/uL Calvert # (Auto) 0.8 (0.0-0.8) K/uL Eos # (Auto) 0.0 (0.0-0.7) K/uL Baso # (Auto) 0.0 (0.0-0.1) K/uL Nucleated RBC % 0.0 /100WBC Nucleated RBCs # 0 K/uL Sodium 140 (136-148) mmol/L Potassium 4.7 (3.5-5.1) mmol/L Chloride 108 H (98-107) mmol/L Carbon Dioxide 24.7 (21.0-32.0) mmol/L BUN 10 (7.0-18.0) mg/dL Creatinine 0.9 (0.8-1.3) mg/dL Est Cr Clr Drug Dosing 126.94 mL/min Estimated GFR (MDRD) > 60.0 ml/min Glucose 117 H (74-106) mg/dL Calcium 8.7 (8.5-10.1) mg/dL MOO Results - Last 24 hrs: Microbiology 05/02/19 08:57 Aerobic Blood Culture - Preliminary Blood - Venous - Lab Draw NO GROWTH AFTER 1 DAY Anaerobic Blood Culture - Preliminary NO GROWTH AFTER 1 DAY 05/02/19 08:27 Aerobic Blood Culture - Preliminary Blood - Venous NO GROWTH AFTER 1 DAY Anaerobic Blood Culture - Preliminary NO GROWTH AFTER 1 DAY Med Orders - Current: Current Medications Discontinued Medications Acetaminophen (Tylenol) 650 mg PO Q4H PRN PRN Reason: Pain/Fever Last Admin: 05/02/19 17:42 Dose: 650 mg Albuterol/Ipratropium (Duoneb 3.0-0.5 Mg/3 Ml) 3 ml NEB ONETIME ONE Stop: 05/02/19 08:17 Last Admin: 05/02/19 09:00 Dose: 3 ml Albuterol/Ipratropium (Duoneb 3.0-0.5 Mg/3 Ml) 3 ml NEB Q4HRRT PRN PRN Reason: Shortness of Breath Azithromycin (Zithromax) 500 mg IV ONETIME ONE Stop: 05/02/19 10:11 Last Admin: 05/02/19 10:17 Dose: Not Given Benzonatate (Tessalon Perles) 100 mg PO TID PRN PRN Reason: Cough Last Admin: 05/02/19 20:45 Dose: 100 mg Sodium Chloride (Normal Saline) 1,000 mls @ 999 mls/hr IV STAT ONE Stop: 05/02/19 09:13 Last Admin: 05/02/19 08:30 Dose: 999 mls/hr Ceftriaxone Sodium/Dextrose 1 (gm/ Premix) 50 mls @ 100 mls/hr IV ONETIME ONE Stop: 05/02/19 10:39 Last Admin: 05/02/19 12:35 Dose: 100 mls/hr Azithromycin 500 mg/ Sodium (Chloride) 250 mls @ 250 mls/hr IV ONETIME ONE Stop: 05/02/19 11:14 Last Admin: 05/02/19 10:33 Dose: 250 mls/hr Azithromycin 500 mg/ Sodium (Chloride) 250 mls @ 250 mls/hr IV DAILY [facility] Last Admin: 05/03/19 11:23 Dose: Not Given Ceftriaxone Sodium/Dextrose 1 (gm/ Premix) 50 mls @ 100 mls/hr IV Q24H [facility] Last Admin: 05/03/19 09:54 Dose: 100 mls/hr Sodium Chloride (Normal Saline) 1,000 mls @ 125 mls/hr IV ASDIRECTED [facility] Last Admin: 05/03/19 03:05 Dose: 125 mls/hr Ketorolac Tromethamine (Toradol) 30 mg IVPUSH ONETIME ONE Stop: 05/02/19 08:14 Last Admin: 05/02/19 08:30 Dose: 30 mg Nicotine (Habitrol) 21 mg TRDERM DAILY [facility] Last Admin: 05/03/19 11:23 Dose: Not Given Ondansetron HCl (Zofran) 4 mg IVPUSH Q4H PRN PRN Reason: Nausea/Vomiting Prednisone (Prednisone) 40 mg PO DAILY [facility] Last Admin: 05/03/19 09:53 Dose: 40 mg
[2019-05-03] MEDS ORDERED: cefTRIAXone 1 GM in Premix Bag 1 BAG IV SCH (09:00)
[2019-05-03] MEDS ORDERED: Azithromycin 500 MG in Sodium Chloride 0.9% 250 ML IV SCH (09:00)
[2019-05-03] MEDS: predniSONE 20 MG Tab PO SCH (09:53)
[2019-05-03] MEDS: Nicotine 21 MG/24 Hr Patch TRDERM SCH (11:23)
== END 2019-05-03 10:50 | disposition home or self-care (01) | DRG 139 ==
LOC: MW.ED 08:02 → MW.MS 11:19
PROVIDERS: ADMIT Internal Medicine; ATTEND Internal Medicine
DX: J18.1 Lobar pneumonia, unspecified organism (principal); E87.3 Alkalosis; F17.210 Nicotine dependence, cigarettes, uncomplicated; F17.290 Nicotine dependence, other tobacco product, uncomplicated; Z79.52 Long term (current) use of systemic steroids; Z79.899 Other long term (current) drug therapy
CPT/HCPCS: 36415; 36600; 71045; 71045-26; 80048; 80053; 82803; 83605; 85025; 87040; 87070; 87205; 96361; 96365; 96375; 99285-25; A9270-GY; J0456; J0696; J1885; J7040; J7050; J7620-GY

== ENCOUNTER 2021-05-04 18:07 | Emergency (ER) | payer BC ==
[2021-05-04] MEDS ORDERED: Diphtheria,Pertussis(Acell),Tetanus Vaccine 0.5 ML Syringe IM ONE (18:47)
[2021-05-04] MEDS ORDERED: Cephalexin 500 MG Cap PO ONE (23:06)
[2021-05-04] MEDS ORDERED: Sulfamethoxazole/Trimethoprim 800-160 MG Tab PO ONE (23:06)
--- NOTE | 2021-05-04 23:10 | EDM.PDOC ---
ED HPI GENERAL MEDICAL PROBLEM - General Chief Complaint: Skin Complaint Stated Complaint: LACERATION ON RT LEG Time Seen by Provider: 05/04/21 22:47 Source of Information: Reports: Patient History Limitations: Reports: No Limitations - History of Present Illness INITIAL COMMENTS - FREE TEXT/NARRATIVE: Patient is a 35-year-old male who suffered a laceration to his right lower e xtremity about a week ago. He states after he suffered a laceration he put some quick clot supplementary in left hip. He was at work today as well no those red and inflamed. States he also applies bacitracin to it this morning. He states that he does have some pain and redness around the lower extremity but denies any systemic symptoms such as fevers chills nausea vomiting or any other complai nts. Right Leg Pain Score (Numeric/FACES): 3 - Related Data Allergies Allergy/AdvReac Type Severity Reaction Status Date / Time No Known Allergies Allergy Verified 05/02/19 18:33 Home Meds: Home Meds Albuterol [Ventolin HFA] 2 puff .XX Q6HR PRN 5 Days #1 inhaler 05/03/19 [Rx] Amoxicillin/Potassium Clav [Augmentin 875-125 Tablet] 1 each PO BID 5 Days #10 tablet 05/03/19 [Rx] Azithromycin 500 mg PO DAILY 5 Days #5 tablet 05/03/19 [Rx] methylPREDNISolone [Medrol] 4 mg PO DAILY 6 Days #1 dospk 05/03/19 [Rx] Past Medical History - Past Health History Medical/Surgical History: Denies Medical/Surgical History Gastrointestinal History: Reports: Hemorrhoids - Infectious Disease History Infectious Disease History: Reports: MRSA - Past Surgical History Head Surgeries/Procedures: Reports: Other (See Below) GI Surgical History: Reports: Hernia, Inguinal Musculoskeletal Surgical History: Reports: Other (See Below) Other Musculoskeletal Surgeries/Procedures:: concussions, broken hand, few ribs Social & Family History - Family History Family Medical History: No Pertinent Family History - Tobacco Use Tobacco Use Status *Q: Current Every Day Tobacco User Years of Tobacco use: 20 Packs/Tins Daily: 0.5 - Caffeine Use Caffeine Use: Reports: None - Recreational Drug Use Recreational Drug Use: No ED ROS GENERAL - Review of Systems Review Of Systems: See Below Constitutional: Reports: No Symptoms HEENT: Reports: No Symptoms Respiratory: Reports: No Symptoms Cardiovascular: Reports: No Symptoms Endocrine: Reports: No Symptoms GI/Abdominal: Reports: No Symptoms : Reports: No Symptoms Musculoskeletal: Reports: No Symptoms Skin: Reports: Lesions Neurological: Reports: No Symptoms Psychiatric: Reports: No Symptoms Hematologic/Lymphatic: Reports: No Symptoms Immunologic: Reports: No Symptoms ED EXAM, SKIN/RASH Exam: See Below Exam Limited By: No Limitations General Appearance: Alert, WD/WN, No Apparent Distress Eye Exam: Bilateral Eye: EOMI, PERRL Respiratory/Chest: No Respiratory Distress Cardiovascular: Normal Peripheral Pulses Extremities: Normal Range of Motion, Non-Tender, Other (Lower right anterior del castillo has some redness around it. There is a black scab on top on top) Neurological: Alert, Oriented, Normal Cognition, Normal Gait Skin: Erythema Course - Vital Signs Last Recorded V/S: Last Vital Signs Temp 98.2 F 05/04/21 18:40 Pulse 81 05/04/21 18:40 Resp 18 05/04/21 18:40 BP 160/80 H 05/04/21 18:40 Pulse Ox 97 05/04/21 18:40 - Orders/Labs/Meds Orders: Active Orders 24 hr Category Date Time Status Vaccines to be Administered [RC] PER UNIT ROUTINE Care 05/04/21 18:47 Active Sulfamethoxazole/Trimethoprim [Septra DS] Med 05/04/21 23:06 Once 1 tab PO ONETIME ONE cephALEXin [Keflex] Med 05/04/21 23:06 Once 500 mg PO ONETIME ONE Meds: Medications Discontinued Medications Generic Name Dose Route Start Last Admin Trade Name Freq PRN Reason Stop Dose Admin Diphtheria/Tetanus/Acell Pertussis 0.5 ml 05/04/21 18:47 Diphtheria,Pertussis(Acell),Tetanus Vaccine 0.5 Ml Syringe IM 05/04/21 18:48 .ONCE ONE Lidocaine HCl 5 ml 05/04/21 18:47 Lidocaine 1% 5 Ml Sdv INJECT 05/04/21 18:48 ONETIME ONE Departure - Departure Time of Disposition: 23:09 Disposition: Home, Self-Care 01 Condition: Good Clinical Impression: Laceration of leg, Cellulitis, leg - Discharge Information *PRESCRIPTION DRUG MONITORING PROGRAM REVIEWED*: Not Applicable *COPY OF PRESCRIPTION DRUG MONITORING REPORT IN PATIENT DEDE: Not Applicable Instructions: Cellulitis, Adult Referrals: Sheri Ashraf PA [Primary Care Provider] - Additional Instructions: The following information is given to patients seen in the emergency department who are being discharged to home. This information is to outline your options for follow-up care. We provide all patients seen in our emergency department w ith a follow-up referral. The need for follow-up, as well as the timing and circumstances, are variable depending upon the specifics of your emergency department visit. If you don't have a primary care physician on staff, we will provide you with a referral. We always advise you to contact your personal physician following an emergency department visit to inform them of the circumstance of the visit and for follow-up with them and/or the need for any referrals to a consulting specialist. The emergency department will also refer you to a specialist when appropriate. This referral assures that you have the opportunity for follow-up care with a specialist. All of these measure are taken in an effort to provide you with optimal care, which includes your follow-up. Under all circumstances we always encourage you to contact your private physician who remains a resource for coordinating your care. When calling for follow-up care, please make the office aware that this follow-up is from your recent emergency room visit. If for any reason you are refused follow-up, please contact the [facility] Emergency Department at and asked to speak to the emergency department charge nurse. Please follow up with your primary care physician. If you do not have a primary care physician, see below: [facility] [address] [place] [id number] [facility] [address] [place] [address] You were seen today for a cut to your right lower leg. The area looks to have some redness around it which could be infected. We will start you on some antibiotics he should take for the next 5 days. If it does get worse may she come in to the ER he may need some IV antibiotics. Otherwise continue to take antibiotics and put bacitracin on top of the area as well for the next 5 days. If you have any other concerning signs or symptoms please return to the ED otherwise follow-up with primary care physician. Sepsis Event Note (ED) - Focused Exam Vital Signs: Vital Signs Temp Pulse Resp BP Pulse Ox 05/04/21 18:40 98.2 F 81 18 160/80 H 97 - My Orders Last 24 Hours: My Active Orders 05/04/21 23:06 Sulfamethoxazole/Trimethoprim [Septra DS] 1 tab PO ONETIME ONE cephALEXin [Keflex] 500 mg PO ONETIME ONE - Assessment/Plan Last 24 Hours: My Active Orders 05/04/21 23:06 Sulfamethoxazole/Trimethoprim [Septra DS] 1 tab PO ONETIME ONE cephALEXin [Keflex] 500 mg PO ONETIME ONE Plan: Patient is a 35-year-old male brought in today for a laceration to the right lower extremity. This is a week old and cannot be sutured up at this time. There is some redness around the area. Patient will be given tetanus started on Keflex and Bactrim and discharged home.
== END 2021-05-05 02:30 | disposition home or self-care (01) ==
LOC: MW.ED 18:07
DX: S81.811A Laceration without foreign body, right lower leg, initial encounter (principal); L03.115 Cellulitis of right lower limb; Z72.0 Tobacco use; Z23 Encounter for immunization; X58.XXXA Exposure to other specified factors, initial encounter
CPT/HCPCS: 90471; 90715; 99283; A9270